=== PATIENT | male | born 2000 | race Caucasian/White ===

== ENCOUNTER 2019-04-02 15:58 | Emergency (ER) | payer OTHER ==
[~2019-04-02] VITALS: Ht 188 cm; Wt 93.9 kg
[2019-04-02 16:25] LABS: URINE BILIRUBIN NEGATIVE (Negative); URINE BLOOD 1+ (Negative); URINE CLARITY CLEAR; URINE COLOR YELLOW; URINE GLUCOSE-RANDOM NEGATIVE (Negative); URINE KETONES NEGATIVE (Negative); URINE LEUKOCYTES-REFLEX 1+ (Negative); URINE NITRITE-REFLEX NEGATIVE (Negative); URINE PROTEIN NEGATIVE (Negative); URINE SPECIFIC GRAVITY 1.015 (1.005-1.030)
[2019-04-02 16:49] LABS: SQUAMOUS NONE SEEN /LPF (0-3); URINE RBC 0-2 Rare /HPF (0-2); URINE WBC-REFLEX >25 Many /HPF (0-5)
[2019-04-02 16:50] LABS: AMORPHOUS URATES Moderate /LPF (None Seen); BACTERIA-REFLEX 1-9 Few /HPF (None Seen); CASTS None Seen /LPF (None Seen); WBC CLUMPS Few (None Seen)
[2019-04-02 16:51] LABS: MUCUS None Seen strn/LPF (None Seen)
[2019-04-02] MEDS ORDERED: CIPRO500 M1 PO ×2 (16:59→17:02)
[2019-04-02 18:26] VITALS: BP 126/89
== END 2019-04-02 18:27 | disposition home or self-care (01) ==
LOC: M.ERS 15:58
PROVIDERS: Nurse Practitioner Family
DX: N39.0 Urinary tract infection, site not specified (principal); F17.210 Nicotine dependence, cigarettes, uncomplicated; Z88.0 Allergy status to penicillin